=== PATIENT | male | born 1990 | race Caucasian/White ===

== ENCOUNTER 2018-10-06 20:33 | Emergency (ER) | payer BC, SELFPAY ==
[2018-10-06 20:34] VITALS: BP 135/76; PULSE 102; RESP 18; TEMP 36.9; O2SAT 96; BMI 23.7
[2018-10-06 20:49] VITALS: TEMP 36.6
--- NOTE | 2018-10-06 20:59 | ED.DCSUM_ITS ---
- ER Visit Summary Date of Service: 10/06/18 Chief Complaint: Rash History of Present Illness: The patient is a 28 M states he had a rash on his upper and lower extremities primarily right lower leg consistent with poison frederic. It has been there for 5 days. Physical Examination: Young male no acute distress vital signs stable afebrile. HEENT exam unremarkable. Neck nontender. Lungs clear to auscultation. Heart regular rhythm. Abdomen soft nontender. Remedies moves all 4. He has poison frederic rash (contact dermatitis) on both upper extremities and legs worse on the right lower leg medially. No secondary infection. No sloughing of skin. He does have vesicles. Otherwise exam unremarkable Test Results: None Emergency Department Course and Treatment: P.o. prednisone. He is already using calamine lotion at home and Benadryl. Treatment Plan: Prednisone 40 mg a day for 1 week. Continue the calamine lotion. Continue the Benadryl. Disposition: Discharge Impression: Acute contact dermatitis consistent with poison frederic This note was generated with [employer] dictation software. It may contain incorrect words, spelling, and punctuation that were not noted in review of the chart prior to signing ED Disposition - Plan for ED Patient: Referrals: Duglas Acevedo, JACINTA-C [Primary Care Provider] -
--- NOTE | 2018-10-06 21:01 | DCINST.ED_ITS ---
ED Disposition - Plan for ED Patient: Disposition: Home or Assisted Living Instructions: ED Dermatitis Poison Lola Prescriptions: Prednisone [Deltasone] 40 mg PO DAILY 10 Days tab Referrals: Duglas Acevedo, [employer] [Primary Care Provider] - 1 Week if not improving Additional Instructions: Continue the calamine or Caladryl lotion. Continue using Benadryl. Prednisone 40 mg a day. I wrote it for 10 days. If the rash goes away before the 10 days you can stop the prednisone.
[2018-10-06] MEDS: predniSONE 20 MG Tablet 60 MG PO (21:03)
[2018-10-06 21:07] VITALS: RESP 18
== END 2018-10-06 21:08 | disposition home or self-care (01) ==
PROVIDERS: Emergency Provider Emergency Medicine; Family Provider Nurse Practitioner Family; PCP Nurse Practitioner Family
DX: L23.7 Allergic contact dermatitis due to plants, except food (principal)
CPT/HCPCS: 99283